=== PATIENT | male | born 1960 | race Caucasian/White ===

== ENCOUNTER → 2022-09-17 | Outpatient (CLI) | payer OTHER, SELFPAY ==
--- NOTE | 2022-09-17 09:16 | NM_ITS ---
CLINICAL: 62-year-old male with history of rectal carcinoma. WHOLE BODY 99m Tc MDP RADIONUCLIDE BONE SCINTIGRAPHY COMPARISON: None available FINDINGS: Following the intravenous administration of 26.1 mCi of 99m Tc MDP, whole body bone images reveal: 1. Increased radiopharmaceutical concentration is defined in the sternoclavicular, acromioclavicular and glenohumeral compartments of both shoulders, the left posterior sacrum, the bilateral wrists and hands, the patellofemoral compartments of both knees, medial tibial compartment of the right knee, the dorsal medial compartment of the right ankle, the left elbow, upper cervical spine posteriorly on the left, 10th thoracic vertebra posteriorly on the right. 2. Enhanced uptake is noted in the left posterior second rib which may be attributed to shine through from the left anterior first rib. 3. The remaining skeletal structures are scintigraphically unremarkable with normal-appearing renal images and urinary bladder activity identified. NM/Bone Scan Whole Body IMPRESSION: 1. The increase in tracer uptake defined in the bilateral shoulders, sacrum, cervical and thoracic spine, the right and left wrists and hands, both knee articulations, the right ankle and left elbow is commensurate with degenerative arthrosis. Plain film radiography correlation may be of benefit in the region of the glenohumeral compartment of the right shoulder. 2. Facilitated uptake noted in the region of the left upper posterior chest wall likely represents trauma-fracture. Plain film radiography correlation may also be of benefit in this location if clinically indicated. 3. There is no definitive scintigraphic evidence of diffuse axial skeletal metastatic disease on the current examination. Electronically Signed: Allan Moreno, at 9:15 EDT ,
== END | disposition home or self-care (01) ==
LOC: NM 09:15
PROVIDERS: PCP Student in an Organized Health Care Education/Training Program; Referring Provider Internal Medicine Hematology & Oncology; Visit Provider Internal Medicine Hematology & Oncology
DX: C20 Malignant neoplasm of rectum (principal); C77.9 Secondary and unspecified malignant neoplasm of lymph node, unspecified
CPT/HCPCS: 78306; A9503

== ENCOUNTER 2022-09-18 07:26 | Day surgery (SDC) | payer OTHER, SELFPAY ==
[2022-09-18] VITALS (12 sets, daily range): BP systolic 122–143; BP diastolic 76–94; PULSE 49–76; RESP 12–18; TEMP 36.1–36.5; O2SAT 94–100; BMI 32.5
[2022-09-18] MEDS: Lactated Ringers 1,000 ML 15 ML IV (07:45)
--- NOTE | 2022-09-18 08:59 | HP.PCM_ITS ---
History and Physical Date of Admission: 09/18/22 Date of Service: 09/13/22 MR#: [id number] Acct: [id number] Name: DEBBIE TOLLIVER Rep #: [id number] : 1960 Provider: Dr. Jonas Gonzales MD Age/Sex: 62/M Location: [facility] Status: Signed Intake Vital Signs 09/05/2314:46 09/10/2309:07 09/14/2307:52 Height 5 ft 7 in 5 ft 7 in 5 ft 7 in Weight: 209 lb 1 oz 209 lb BMI 32.7 32.7 BP 153/97 H 122/78 H Blood Pressure Location Rt brachial Lt brachial Position Sitting Sitting Respiration 16 17 Pulse 82 78 Pulse Source Monitor Monitor Temp 97.4 F L Pulse Oximetry (%) 95 96 Oxygen Delivery Method room air room air Intake Visit Reasons: PORT PLACEMENT Chief Complaint: port placement Is patient in pain?: No Allergies No Known Allergies Allergy (Verified 09/13/22 08:53) Medications amlodipine 5 mg tablet 5 mg PO DAILY 11/11/20 [History Confirmed 09/13/22] dulaglutide 1.5 mg/0.5 mL subcutaneous pen injector (Trulicity) 1.5 mg subcut QWEEK 11/11/20 [History Confirmed 09/13/22] losartan 100 mg tablet 100 mg PO DAILY 11/11/20 [History Confirmed 09/13/22] sildenafil 50 mg tablet (Viagra) 50 mg PO DAILY PRN 11/11/20 [History Confirmed 09/13/22] insulin glargine 100 unit/mL (3 mL) subcutaneous pen (Lantus Solostar U-100 Insulin) 23 unit subcut QAM 09/05/22 [History Confirmed 09/13/22] omeprazole 20 mg capsule,delayed release 40 mg PO DAILY PRN 09/05/22 [History Confirmed 09/13/22] rosuvastatin 20 mg tablet 20 mg PO DAILY 09/05/22 [History Confirmed 09/13/22] FOR[facility] Medical History Abnormal electrocardiogram COVID-19 DDD (degenerative disc disease) Encounter for education Erectile dysfunction Essential hypertension Hyperlipidemia Hypertension Opioid dependence Rectal cancer Regional lymph node metastasis present Right bundle branch block (RBBB) Sleep apnea TIA (transient ischemic attack) Type 2 diabetes mellitus Surgical History History of bilateral inguinal hernia repair History of colonoscopy History of nasal septoplasty History of surgery on arm History of vasectomy History of wisdom tooth extraction Family History Mother DiabetesAunt Breast cancer maternalAunt Breast cancer paternalGrandfather Lung cancer maternal Social History household members: family current occupational status: employed 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 Patient was diagnosed with rectal cancer on 07/24/2022 after complaints of bleeding and pain. They have met with oncology and plans are to begin chemotherapy as soon as possible and they have considered starting be a simple peripheral IV if no port is in place by the time they are prepared to initiate treatment. Mr. Tolliver reports a history of a colonoscopy 2 years ago with removal of a large rectal polyp, but states that he was told this was noncancerous. Following his scope in July he has continued with altered bowel habits and goes between periods of constipation and diarrhea. He is yet to start a stool softener. Patient has no prior history of central line placement. Patient has no pacemaker or intracardiac defibrillator. Patient has no history of renal dysfunction. There is no history of cutaneous infections?or MRSA specifically. Mr. Tolliver is not currently prescribed blood thinners. ROS General General: Yes fatigue and colon cancer; No weight change, appetite, breast cancer or weakness HEENT HEENT: No difficulty swallowing, eye injury, eye surgery, swollen glands or hoarseness Endo Endocrine: Yes diabetes mellitus; No thyroid disease, thyroid cancer, Hair loss, heat intolerance or cold intolerance Skin Skin: No rash or changing moles Musc Musculoskeletal: Yes back problems and arthritis; No rheumatoid arthritis, gout or joint pain Cardio Cardiovascular: Yes high blood pressure; No murmur, pacemaker, heart disease, atrial fibrillation, heart attack, heart stent, palpitations, shortness of breat with exertion or chest pain Psych Psychiatric: No depression, anxiety or hearing voices Resp Respiratory: No shortness of breath, Yes sleep apnea, Yes cough, No COPD, No asthma, No emphysema and No wheezing Additional Details: c pap Gastro Gastrointestinal: No abdominal pain, Yes nausea or vomiting, Yes diarrhea, Yes constipation, Yes blood in stool, Yes acid reflux, No hemorrhoids, No ulcers, No gallbladder problem and No black,tarry stools Cooper Hematologic: No blood thinners, No blood disorders, Yes bleeding, No anemia and No blood clots Neuro Neurologic: No system reviewed and no additional complaints, except as documented, No as per HPI, No abnormal gait, No abnormal hearing, No abnormal movements, No abnormal speech, No behavioral changes, No burning sensations, No confusion, No convulsions, No disequilibrium, No dizziness, No localized weakness, No frequent falls, No headache(s), No lack of coordination, No loss of vision, No memory loss, Yes numbness, No other visual disturbances, No radicular pain, No restless legs, No sensory deficit, No syncope, Yes tingling, No tremor(s), No weakness and No other Exam Const General: cooperative, comfortable, no acute distress and anxious Orientation: alert, awake and oriented x3 Neck Other: No scars Chest Other: No scars, rashes, or eruptions Resp Effort & Inspection: normal respiratory effort Assessment and Plan Assessment and Plan (1) Rectal cancer: Status: Acute Comment: This is a 62-year-old male with recently diagnosed rectal adenocarcinoma and probable regional lymph node metastasis who presents for consideration of port placement given plans by oncology and radiation oncology to begin neoadjuvant therapy. By history he has no prior placement of central venous catheters and no renal dysfunction. Additionally, he has no history of blood thinning agents. Therefore, I find no contraindication to port placement and have counseled him extensively on the need to avoid any risk for infection with this access. He and his spouse expressed understanding of the information provided and wish to be underway with port placement as soon as possible given that he is finding IV placement for his treatments and lab draws to date very uncomfortable. Lastly, patient does note that he is active with some shooting sports so this might be considered at the time of his port placement. Plan: ? Plan for right versus left port placement via ultrasound guidance under MAC sedation at first mutually available date (2) Regional lymph node metastasis present: Status: Acute I have examined the patient and the H&P has been reviewed. There are no clinical changes since date of exam. Patient reports plans by oncology to begin chemotherapy on 09/25/2022. He denies any questions related procedure. Therefore we will proceed to the operating room for right versus left ultrasound-guided port placement.
[2022-09-18] MEDS: Cefazolin 2 GM in 0.9% Normal Saline 100 ML IV (09:07)
[2022-09-18 09:25] LABS: Bedside Glucose 219 mg/dL (74-106)
[2022-09-18] MEDS: Bupivacaine Mpf 0.5% 30 ML VIAL (10:10)
--- NOTE | 2022-09-18 10:12 | OP.PCM_ITS ---
Report of Operation Date of Procedure: 09/18/22 Pre-Operative Diagnosis: Rectal cancer with probable regional lymph node metast asis requiring durable venous access for neoadjuvant chemotherapy Post-Operative Diagnosis: Same Surgery/Procedure Performed:: Ultrasound-guided right internal jugular Port-A-Cath placement Description of Surgical Findings:: ? Port-A-Cath tip terminating below the right mainstem bronchus in the vicinity of the SVC?right atrium junction Surgeon: Jonas Gonzales Type of Anesthesia: MAC/Supplemental/Local Anesthesiologist: Amrit Badillo Estimated Blood Loss (mL): 10 Description of Procedure: After appropriate identification in the preoperative holding area the patient was brought to the operating room. There he was administered preoperative antibiotics and positioned supine on the operating room table. Once sedation was begun, the upper chest and lower cervical region were prepped and draped in usual sterile fashion. A formal timeout was then conducted to confirm both the patient and procedure. Ultrasound was used to localize the right internal jugular vein. Then a wheal of 0.5% bupivacaine was raised superficially in this location and the vein was accessed under direct ultrasound guidance using a Seldinger technique and micro access kit to place a guidewire. The position of the guidewire was confirmed with fluoroscopy. The micro access guidewire was exchanged for standard 035 guidewire using provided sheath. Next the position of the port pocket was determined and again local anesthetic was used to anesthetize the area of both the pocket and the tunneling cephalad. A transverse incision 3 cm in width was made down through the subcutaneous tissue. Selective electrocautery was used to obtain hemostasis. Then with blunt dissection the port pocket was developed. The catheter was connected to the tunneler and was tunneled up to the position of the guidewire. Here the dilator and peel-away sheath were placed over the guidewire and the guidewire was removed. Position was again confirmed with fluoroscopy. The catheter was then fed into the sheath and slowly the sheath was peeled away as the catheter was inserted fully into the neck. The catheter length was determined by its relationship to the mukul and approximation of the cavoatrial junction. Back in the chest the excess catheter was trimmed and the port was connected to the catheter. The port was tied into the pocket using 2-0 Prolene. Function was then tested using sterile saline on a Wills needle. It was locked with 3 mL of heparinized saline (concentration 50U/5mL). The port pocket was closed with a deep dermal stitch using a running 3-0 Vicryl followed by 4-0 Monocryl subcuticular stitch. The 1 cm incision in the neck was closed with a single interrupted subcuticular stitch using 4-0 Monocryl. Dermabond was applied as a dressing. Patient was then aroused from the sedation and taken to PACU for ongoing recovery were a portable chest x-ray was obtained to confirm port positioning and exclude any pneumothorax. Grafts/Implants Used: PowerPort ISP MRI implantable port (8 Fr) reference [id number], lot [id number] Complications None Admit VTE Documentation VTE Mechan Device Prophylaxis: SCD's Procedures Cardiovascular CF Procedures [id number]: [id number] Insert tunneled cv cath
--- NOTE | 2022-09-18 10:15 | RAD_ITS ---
STUDY: X-RAY CHEST REASON FOR EXAM: Male, 62 years old. Status post line placement TECHNIQUE: Single AP portable view of the chest. COMPARISON: Comparison is made with prior study May 23, 2015. FINDINGS: A right-sided Port-A-Cath is seen with the tip in the midportion of the superior vena cava. EKG electrodes are seen. Increased markings are seen in the left mid lung as well as left lung base with blunting of the left costophrenic angle. Mild increased markings also seen in the right infrahilar region. This may represent either early infiltrate and/or atelectatic changes. Normal size heart. Normal mediastinum and shayy. Normal visualized pulmonary arteries. There is atherosclerotic tortuosity of the aortic arch and descending thoracic aorta. Normal visualized thoracic spine. Normal visualized ribs, clavicles, and shoulders. There is no demonstrated abnormality of the visualized soft tissue structures of the upper abdomen. RAD/CXR for Line Placement IMPRESSION: Increased markings in the left mid lung as well as left lower lobe and right lower lobe. This may represent either linear atelectasis and/or early infiltrate. Follow-up recommended. Electronically Signed: Willis Jacome MD at 10:59 EDT ,
--- NOTE | 2022-09-18 10:15 | DCINST_ITS ---
Discharge Instructions Diet Discharge Diet: No restrictions Activity Discharge Activity: May Shower May shower in (days): 1 Ice area for (Minutes): 20 Additional Activity Instructions:: Limit the activity by the nearest upper extremity for 48 hours postop Dressing / Incision Call your doctor if your incision/area has: Increased Pain/ Swelling, Increased Redness, Foul Smelling Discharge and Swelling at the incision site Call your doctor if you observe: Fever of 101 or Higher Remove Dressing in: do not remove dressing (Dermabond (surgical glue) expected to dissolve spontaneously within 7 to 10 days postop using regular showering) Cleanse incision/area with: Soap & Water Follow Up Care Test Results: Test results from this visit will be discussed in further detail at your follow- up appointment, if applicable. Discharge Plan Admission Primary Reason for Your Visit: Port placement Attending Provider: Jonas Gonzales Primary Care Provider: Keturah Keller Discharge Orders/Prescriptions Prescriptions: No Action rosuvastatin 20 mg tablet 20 mg PO DAILY insulin glargine [Lantus Solostar U-100 Insulin] 100 unit/mL (3 mL) insulin pen 23 unit subcut QAM multivitamin [Daily Multi-Vitamin] Tablet 1 tab PO DAILY losartan 100 mg tablet 100 mg PO DAILY amlodipine 5 mg tablet 5 mg PO DAILY Trulicity 1.5 mg/0.5 mL pen injector 1.5 mg subcut QWEEK sildenafil [Viagra] 50 mg tablet 50 mg PO DAILY PRN (Reason: sexual activity) Rx Instructions: administer 30 minutes to 4 hours before activity omeprazole 20 mg capsule,delayed release(DR/EC) 40 mg PO DAILY PRN (Reason: GERD) Referrals / Follow Up: Keturah Keller MD [Primary Care Provider] - Disposition Disposition (needs filled in before D/C Order can be placed): Home, Self Care
--- NOTE | 2022-09-18 11:30 | SUR.PHASEI ---
Teri FRANKEL NOTIFIED OF EKG CHANGES, EGD ORDERED. ALSO NOTIFIED OF LOW SPO2 AND SOME CHEST XRAY CHANGES. I SPOKE TO DR. SERRANO AND HE IS AWARE OF CHEST XRAY CHANGES. HE TOLD ME TO GIVE THE PATIENT AND INCENTIVE SPIROMETER, ENCOURAGE TO GO TO PCP IF STARTS COUGHING OR SOB, AND CHECK SPO2 AT HOME. DR. FRANKEL SAID TO KEEP PATIENT FOR A WHILE LONGER.
--- NOTE | 2022-09-18 11:40 | EKG12_ITS ---
Test Reason : EKG CHANGES Blood Pressure : / mmHG Vent. Rate : 050 BPM Atrial Rate : 050 BPM P-R Int : 164 ms QRS Dur : 122 ms QT Int : 454 ms P-R-T Axes : 022 -21 008 degrees QTc Int : 413 ms Sinus bradycardia Right bundle branch block Abnormal ECG When compared with ECG of 07-APR-2013 16:50, Vent. rate has decreased BY 27 BPM Right bundle branch block is now Present Confirmed by CHRISTOPHER MONTESINOS, TAMI ([id number]), editorial manager BRANDT PRADO ([id number]) on 09/24/2022 11:16:17 AM Referred By: Jonas Gonzales Confirmed By:TAMI WHITE MD
--- NOTE | 2022-09-18 13:08 | SUR.PHASEI ---
DR. FRANKEL VIEWED EKG AND SAID NO CHANGES. I TOLD HIM ABOUT HIS SPO2 STILL DROPPING AT TIMES, BUT BOUNCES RIGHT UP AFTER TELLING HIM TO TAKE DEEP BREATHS. HE ORDERED A WALK WITH SPO2 IN PHASE 2.
--- NOTE | 2022-09-18 13:12 | SUR.PHASEI ---
PATIENT'S NOTIFIED OF WATCHING PATIENT FOR LOW SP02. TOLD HER WE WILL NOTIFY HER WHEN READY TO LEAVE.
[2022-09-18] MEDS: Acetaminophen 500 MG Tablet PO (13:43)
[2022-09-18] MEDS: Ibuprofen 400 MG Tablet PO (13:44)
== END 2022-09-18 14:23 | disposition home or self-care (01) ==
LOC: SDC 07:27 → AC 07:28
PROVIDERS: PCP Student in an Organized Health Care Education/Training Program; Referring Provider Surgery; Visit Provider Surgery
PROC: (CPT 36561; principal; 2022-09-18 09:05)
DX: C20 Malignant neoplasm of rectum (principal); C77.9 Secondary and unspecified malignant neoplasm of lymph node, unspecified; E11.9 Type 2 diabetes mellitus without complications; E78.5 Hyperlipidemia, unspecified; Z86.16 Personal history of COVID-19; I10 Essential (primary) hypertension; Z80.1 Family history of malignant neoplasm of trachea, bronchus and lung; F12.90 Cannabis use, unspecified, uncomplicated; Z80.3 Family history of malignant neoplasm of breast; Z86.73 Personal history of transient ischemic attack (TIA), and cerebral infarction without residual deficits; I45.10 Unspecified right bundle-branch block
CPT/HCPCS: 36561; 00532; 71045; 77001; 82962; 93005; J7120; C1788; J2405

== ENCOUNTER 2023-04-28 20:47 | Emergency (ER) | payer OTHER, SELFPAY ==
[2023-04-28 20:48] VITALS: BP 127/81; PULSE 88; RESP 16; TEMP 36.4; O2SAT 97; BMI 31.4
--- NOTE | 2023-04-28 21:15 | EDS_ITS ---
HPI <SEB Ackerman - Last Filed: 04/28/23 22:00> History of Present Illness Chief Complaint: Nausea/Vomiting/Diarrhea Narrative Narrative: 62-year-old male has past medical history of HTN, HLD, DM2, and rectal cancer and finished chemotherapy on March 17. Over the last week he has had significant burping, intermittent abdominal cramping and sharp pains, and diarrhea. He states he has 20+ episodes of loose watery diarrhea per day. Occasionally it has blood-tinged mucus. He states his rectal specialist told him it could be normal to have a small amount of blood in his stool from the tumor. He has had no clots or large bleeding. Today he started vomiting and cannot keep down fluids. After finishing chemotherapy his rectal tumor shrunk to the point he was told he does not need surgery. Surgical history includes bilateral inguinal hernia repair. He denies recent antibiotic use. No fever or chills. PFSH <SEB Ackerman - Last Filed: 04/28/23 22:00> [facility] Medical History Abnormal electrocardiogram Alcohol use Arthritis Back pain Cancer COVID-19 CPAP (continuous positive airway pressure) dependence DDD (degenerative disc disease) Dietary restriction Dysuria Encounter for chemotherapy management Encounter for education Erectile dysfunction Essential hypertension Gastric reflux High cholesterol History of echocardiogram Hyperlipidemia Hypertension Injury of head and neck Insulin dependent diabetes mellitus Loss of hearing Non-smoker Opioid dependence Oral candidiasis Prerenal azotemia Rectal cancer Regional lymph node metastasis present Restless legs Right bundle branch block (RBBB) TIA (transient ischemic attack) Type 2 diabetes mellitus Home Medications amlodipine 5 mg tablet 5 mg PO DAILY 11/11/20 [History Last Taken 09/18/22] dulaglutide 1.5 mg/0.5 mL subcutaneous pen injector (Trulicity) 1.5 mg subcut QWEEK 11/11/20 [History Last Taken Unknown] losartan 100 mg tablet 100 mg PO DAILY 11/11/20 [History Last Taken 09/18/22] sildenafil 50 mg tablet (Viagra) 50 mg PO DAILY PRN sexual activity 11/11/20 [History Last Taken Unknown] insulin glargine 100 unit/mL (3 mL) subcutaneous pen (Lantus Solostar U-100 Insulin) 23 unit subcut QAM 09/05/22 [History Last Taken Unknown] omeprazole 20 mg capsule,delayed release 40 mg PO DAILY PRN GERD 09/05/22 [History Last Taken 09/18/22] rosuvastatin 20 mg tablet 20 mg PO DAILY 09/05/22 [History Last Taken Unknown] multivitamin (Daily Multi-Vitamin tablet) 1 tab PO DAILY 09/14/22 [History Last Taken Unknown] ondansetron 8 mg disintegrating tablet 8 mg PO Q8H PRN nausea and vomiting #30 tabs 09/20/22 [Rx Last Taken Unknown] prochlorperazine maleate 10 mg tablet 10 mg PO Q6H PRN nausea and vomiting #30 tabs 10/19/22 [Rx Last Taken Unknown] lidocaine-prilocaine 2.5 %-2.5 % topical cream 1 applic topical ONCE PRN port access 30 days #30 grams 01/14/23 [Rx Last Taken Unknown] nystatin 100,000 unit/mL oral suspension 5 ml PO Q6H #473 mL 04/08/23 [Rx Last Taken Unknown] Allergy/AdvReac Type Severity Reaction Status Date / Time No Known Allergies Allergy Verified 04/28/23 20:48 Family History Mother Diabetes Aunt Breast cancer maternal Aunt Breast cancer paternal Grandfather Lung cancer maternal Surgical History History of bilateral inguinal hernia repair History of colonoscopy History of nasal septoplasty History of surgery on arm History of vasectomy History of wisdom tooth extraction Social History household members: family current occupational status: employed 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 CVS: Negative for chest pain. Respiratory: Negative for shortness of breath, cough. GI: Positive for abdominal pain, nausea, vomiting, diarrhea. : Negative for dysuria. EXAM <SEB Ackerman - Last Filed: 04/28/23 22:00> Physical Exam Narrative Exam Narrative: CONST: Patient sitting in no acute distress. EYES: Normal inspection. NECK: Normal inspection. RESP: No respiratory distress, CTAB. CVS: Regular rate and rhythm, no murmur, no gallop. ABD: Soft and nontender, no guarding or rebound, nondistended. Normal bowel sounds x 4. SKIN: Color normal, no rash, warm, dry, intact. EXTREMITIES: Normal appearance, no pedal edema. NEURO: Oriented x4. PSYCH: Normal affect. Const Vital Signs: 04/28/23 20:48 04/28/23 22:00 04/28/23 23:00 Temperature 97.5 F L Temperature Source Temporal Pulse Rate 88 Respiratory Rate 16 Blood Pressure 127/81 H 134/88 H 132/79 H Blood Pressure Mean 96 102 96 Pulse Ox 97 96 95 Oxygen Delivery Method Room Air <Dr. Priya Espinoza MD - Last Filed: 04/29/23 00:31> Physical Exam Const Vital Signs: 04/28/23 20:48 04/28/23 22:00 04/28/23 23:00 Temperature 97.5 F L Temperature Source Temporal Pulse Rate 88 Respiratory Rate 16 Blood Pressure 127/81 H 134/88 H 132/79 H Blood Pressure Mean 96 102 96 Pulse Ox 97 96 95 Oxygen Delivery Method Room Air MDM <SEB Ackerman - Last Filed: 04/28/23 22:00> [facility] Narrative Medical decision making narrative: Patient reports a week of intermittent abdominal cramping, burping, and diarrhea. Today started vomiting. He appears well and nontoxic and is afebrile with normal vital signs. He has a normal cardiopulmonary exam. Abdomen is soft, nontender, nondistended with normal bowel sounds. CBC and BMP are overall unremarkable. Glucose at 211 is consistent with his diabetes with normal CO2 and anion gap. Diarrhea was sent for stool panel testing. CT scan is pending. Lab Data Attestation: I reviewed the patient's lab results. Labs: Laboratory Results - last 24 hr 04/28/23 04/28/23 21:15 23:50 WBC 6.8 RBC 4.71 Hgb 15.2 Hct 45.0 MCV 95.5 H MCH 32.3 H MCHC 33.8 RDW Std Deviation 41.8 RDW Coeff of Danie 11.9 Plt Count 166 MPV 10.5 Immature Gran % (Auto) 0.100 Neut % (Auto) 75.5 H Lymph % (Auto) 7.[address] [place] % (Auto) 11.7 H Eos % (Auto) 4.8 Baso % (Auto) 0.3 Absolute Neuts (auto) 5.2 Absolute Lymphs (auto) 0.52 L Nucleated RBC % 0 Sodium 137 Potassium 4.0 Chloride 108 H Carbon Dioxide 25.0 Anion Gap 4 L BUN 16 Creatinine 0.87 Estim Creat Clear Calc 96.01 Est GFR (MDRD) Af Amer 115 Est GFR (MDRD) Non-Af 95 BUN/Creatinine Ratio 18.5 Glucose 211 H Calcium 9.1 Total Bilirubin 1.20 H AST 29 ALT 28 Alkaline Phosphatase 107 Total Protein 6.9 Albumin 3.3 Globulin 3.6 Albumin/Globulin Ratio 0.9 Urine Color Yellow Urine Clarity Clear Urine pH 6.5 Ur Specific [place] 1.015 Urine Protein Negative Urine Glucose (UA) 50 H Urine Ketones Negative Urine Occult Blood Negative Urine Nitrite Negative Urine Bilirubin Negative Urine Urobilinogen Normal Ur Leukocyte Esterase Negative Urine RBC 0 SEEN Urine WBC 0 SEEN Ur Squamous Epith Cells 0 SEEN Urine Bacteria 0 SEEN Urine Mucus 0 SEEN Radiography Diagnostic Testing: Clinical Impression(s) from Imaging Studies Abdomen/Pelvis CT 04/28/23 21:58 IMPRESSION: Circumferential bladder wall inflammation concerning for cystitis. Mild hepatic steatosis. Electronically Signed: Pratki Gregory MD at 22:54 EST Reading Location ID and State: [facility] / [place] Tel , Service support , <Dr. Priya Espinoza MD - Last Filed: 04/29/23 00:31> [facility] Lab Data Labs: Laboratory Results - last 24 hr 04/28/23 04/28/23 21:15 23:50 WBC 6.8 RBC 4.71 Hgb 15.2 Hct 45.0 MCV 95.5 H MCH 32.3 H MCHC 33.8 RDW Std Deviation 41.8 RDW Coeff of Danie 11.9 Plt Count 166 MPV 10.5 Immature Gran % (Auto) 0.100 Neut % (Auto) 75.5 H Lymph % (Auto) 7.[address] [place] % (Auto) 11.7 H Eos % (Auto) 4.8 Baso % (Auto) 0.3 Absolute Neuts (auto) 5.2 Absolute Lymphs (auto) 0.52 L Nucleated RBC % 0 Sodium 137 Potassium 4.0 Chloride 108 H Carbon Dioxide 25.0 Anion Gap 4 L BUN 16 Creatinine 0.87 Estim Creat Clear Calc 96.01 Est GFR (MDRD) Af Amer 115 Est GFR (MDRD) Non-Af 95 BUN/Creatinine Ratio 18.5 Glucose 211 H Calcium 9.1 Total Bilirubin 1.20 H AST 29 ALT 28 Alkaline Phosphatase 107 Total Protein 6.9 Albumin 3.3 Globulin 3.6 Albumin/Globulin Ratio 0.9 Urine Color Yellow Urine Clarity Clear Urine pH 6.5 Ur Specific [place] 1.015 Urine Protein Negative Urine Glucose (UA) 50 H Urine Ketones Negative Urine Occult Blood Negative Urine Nitrite Negative Urine Bilirubin Negative Urine Urobilinogen Normal Ur Leukocyte Esterase Negative Urine RBC 0 SEEN Urine WBC 0 SEEN Ur Squamous Epith Cells 0 SEEN Urine Bacteria 0 SEEN Urine Mucus 0 SEEN Radiography Diagnostic Testing: Clinical Impression(s) from Imaging Studies Abdomen/Pelvis CT 04/28/23 21:58 IMPRESSION: Circumferential bladder wall inflammation concerning for cystitis. Mild hepatic steatosis. Electronically Signed: Pratik Gregory MD at 22:54 EST Reading Location ID and State: [address] [place] [address] Tel , Service support , Treatment and Re-Evaluation :: Patient seen and evaluated with ISAEL. I personally interviewed and examined the patient. I was involved in all aspects of patient's orders, interpretation of results, and treatment. Patient presents with 1 week history of diarrhea and frequent burping. Today he had 3 episodes of vomiting with at least 20 episodes of diarrhea. He was recently treated for rectal cancer and did have chemotherapy and radiation, both of which have been completed. He denies any recent antibiotic use. Patient sitting upright in bed no acute distress. Nontoxic-appearing. Head and neck examination unremarkable. Heart is regular rate and rhythm. Lung sounds are clear. Abdomen is soft with no focal tenderness. Abdomen is slightly distended with hyperactive bowel sounds. CBC was normal white count at 6.8 with a hemoglobin of 15.2. Differential does reveal 75% neutrophils. Chemistry studies unremarkable with normal renal function. Potassium is normal at 4.0. Glucose is 211. LFTs significant only for a total bili of 1.20. CT scan of the abdomen and pelvis reveals thickened bladder wall concerning for cystitis. Urinalysis was then obtained and is unremarkable. I believe he likely has chronic wall thickening from his radiation. Stool studies have been sent and are still pending at this time. Patient was advised that these test usually takes several hours. He will be called if these tests are positive. He also can log onto the portal and review his lab results himself. He was advised that once he knows the stool studies are negative he can take Imodium to help control his diarrhea. He was given a liter of IV fluids here to help with hydration. Patient is comfortable with the plan and return instructions have been provided. Discharge Plan Triage Chief Complaint: Nausea/Vomiting/Diarrhea ED Midlevel Provider: Selma Dent ED Provider: Priya Espinoza Dx/Rx/DC Orders Clinical Impression: Diarrhea Instructions: ED Gastroenteritis, Viral (Adult) Prescriptions: No Action rosuvastatin 20 mg tablet 20 mg PO DAILY insulin glargine [Lantus Solostar U-100 Insulin] 100 unit/mL (3 mL) insulin pen 23 unit subcut QAM lidocaine-prilocaine 2.5-2.5 % cream 1 applic topical ONCE PRN (Reason: port access) 30 Days Qty: 30 2RF multivitamin [Daily Multi-Vitamin] Tablet 1 tab PO DAILY losartan 100 mg tablet 100 mg PO DAILY amlodipine 5 mg tablet 5 mg PO DAILY Trulicity 1.5 mg/0.5 mL pen injector 1.5 mg subcut QWEEK sildenafil [Viagra] 50 mg tablet 50 mg PO DAILY PRN (Reason: sexual activity) Rx Instructions: administer 30 minutes to 4 hours before activity omeprazole 20 mg capsule,delayed release(DR/EC) 40 mg PO DAILY PRN (Reason: GERD) ondansetron 8 mg tablet,disintegrating 8 mg PO Q8H PRN (Reason: nausea and vomiting) Qty: 30 2RF prochlorperazine maleate 10 mg tablet 10 mg PO Q6H PRN (Reason: nausea and vomiting) Qty: 30 2RF nystatin 100,000 unit/mL suspension 5 ml PO Q6H Qty: 473 1RF Rx Instructions: swish and swallow Primary Care Provider: Keturah Keller Referrals: Keturah Keller MD [Primary Care Provider] - 3-5 Days if not improving Disposition Disposition: Home, Self Care
[2023-04-28] MEDS: Ondansetron 4 MG/2 ML Vial IV (21:25)
[2023-04-28] MEDS: 0.9% Normal Saline (1000mL) 1,000 ML 1000 ML IV (21:26)
[2023-04-28 21:34] LABS: Absolute Lymphocyte Count 0.52 X10^3/uL (0.83-4.51); Absolute Neutrophil Count 5.2 X10^3/uL (2.0-7.7); Basophil# 0.02 X10^3/uL; Basophil% 0.3 % (0-1); Eosinophil# 0.33 X10^3/uL; Eosinophils% 4.8 % (0-5); Hemoglobin 15.2 g/dL (13.0-16.5); Lymphocyte # 0.52 X10^3/ul (0.83-4.51); Lymphocyte % 7.6 % (19-41); Mean Corp Hgb Conc 33.8 g/dL (32-36); Mean Corpuscular Hgb 32.3 pg (27.0-32.0); Mean Corpuscular Volume 95.5 fL (80-94); Mean Platelet Vol. 10.5 fl (6.2-12.0); Monocyte% 11.7 % (0-10); NRBC Flagged by Analyzer 0 % (0-5); Neutrophil # 5.16 X10^3/uL (2.7-7.7); Neutrophil % 75.5 % (47-70); POSITIVE DIFFERENTIAL YES; Platelet Count 166 K/mm3 (150-450); RBC Distribution Width CV 11.9 % (11.6-14.6); RBC Distribution Width SD 41.8 fl (35.1-43.9); Red Blood Count 4.71 M/mm3 (4.6-6.2); White Blood Count 6.8 K/mm3 (4.4-11.0)
[2023-04-28 21:42] LABS: ALB/GLOB Ratio 0.9 RATIO (0.9-2.4); AST(SGOT) 29 U/L (15-37); Alanine Aminotransfer ALT/SGPT 28 U/L (16-61); Albumin, Serum 3.3 g/dL (3.2-5.0); Alkaline Phosphatase 107 U/L (45-117); Anion Gap 4 (5-15); BUN 16 mg/dL (7-18); BUN/Creat Ratio 18.5 RATIO (10-20); Calcium,Total 9.1 mg/dL (8.5-10.1); Chloride 108 mmol/L (98-107); Creatinine, Serum 0.87 mg/dL (0.70-1.30); EST Glomerular Filtration Rate 95 mL/min (>60); Est Glom Filt Rate - Afr Amer 115 mL/min (>60); Estimated Creatinine Clearance 96.01 ml/min; Globulin 3.6 g/dL (2.2-4.2); Glucose 211 mg/dL (74-106); Protein, Total 6.9 g/dL (6.4-8.2); Sodium Level 137 mmol/L (136-145)
--- OUTSIDE RECORDS SUMMARY | 2023-04-28 21:42 | XMS RPT_ITS | CCD ---
Author Name Unknown Address [address] [place] [address] Organization [facility] Care Team Providers Care Telephone Order Clerk Room Service Name Role Phone SHANNON KELLER MD Attending Unavailable SHANNON KELLER MD Primary Care Unavailable SHANNON KELLER MD Admitting Unavailable Spike Reece MD Primary Care Provider Shannon Keller MD Primary Care Provider None, No PCP Unavailable Unavailable Unavailable Unavailable Shannon Keller MD Primary Care Provider [phone] Shannon Keller Referring Unavailable BELLO, DO BARRETT Palmer Attending Unavailable Clarisa Boo Attending Unavailable Emmanuel, Dr. Debbie Ayoub Attending Unavaila Clarisa Bartlett Referring Unavailable Emmanuel, Dr. Debbie Ayoub Attending Unavaila Clarisa Bartlett Referring Unavailable Emmanuel, Dr. Debbie Ayoub Attending Unavaila Clarisa Bartlett Referring Unavailable MD JAYLON GERARD Attending Unavail able DO BARRETT MONSALVE Referring Unavailable Bello, Dr. Barrett Palmer Attending Unavailable Rajeev, Ms. Clarisa Cosby Attending Unavailab marin Boo, Ms. Clarisa Cosby Referring Unavailab marin Gerard, Dr. Jaylon Sierra Attending Ryan Gerard, Dr. Jaylon Sierra Referring Ryan Monsalve, Dr. Barrett Palmer Admitting Unavailable Bello, Dr. Barrett Palmer Attending Unavailable Shannon Keller Referring Unavailable SHANNON KELLER MD Consulting Unavailable BARRETT MONSALVE Primary Care Unavailable BARRETT MONSALVE Attending Unavailable BARRETT MONSALVE Admitting Unavailable PROVIDER, UNKNOWN Consulting Unavailable PROVIDER, UNKNOWN Consulting Unavailable SHANNON KELLER MD Primary Care Unavailable SHANNON KELLER MD Consulting Unavailable SHANNON KELLER MD Attending Unavailable SHANNON KELLER MD Admitting Unavailable PROVIDER, UNKNOWN Consulting Unavailable PROVIDER, UNKNOWN Consulting Unavailable SHANNON KELLER MD Primary Care Unavailable SHANNON KELLER MD Consulting Unavailable SHANNON KELLER MD Attending Unavailable SHANNON KELLER MD Admitting Unavailable PROVIDER, UNKNOWN Consulting Unavailable PROVIDER, UNKNOWN Consulting Unavailable SHANNON KELLER MD Primary Care Unavailable SHANNON KELLER MD Attending Unavailable SHANNON KELLER MD Admitting Unavailable SHANNON KELLER MD Consulting Unavailable PROVIDER, UNKNOWN Consulting Unavailable PROVIDER, UNKNOWN Consulting Unavailable SHANNON KELLER MD Consulting Unavailable SHANNON KELLER MD Attending Unavailable SHANNON KELLER MD Admitting Unavailable SHANNON KELLER MD Primary Care Unavailable PROVIDER, UNKNOWN Consulting Unavailable PROVIDER, UNKNOWN Consulting Unavailable SHANNON KELLER MD Primary Care Unavailable SHANNON KELLER MD Consulting Unavailable SHANNON KELLER MD Attending Unavailable SHANNON KELLER MD Admitting Unavailable PROVIDER, UNKNOWN Consulting Unavailable PROVIDER, UNKNOWN Consulting Unavailable SHANNON KELLER MD Primary Care Unavailable SHANNON KELLER MD Attending Unavailable SHANNON KELLER MD Admitting Unavailable SHANNON KELLER MD Consulting Unavailable PROVIDER, UNKNOWN Consulting Unavailable PROVIDER, UNKNOWN Consulting Unavailable Unavailable Primary Care Provider Unavailabl e ANALI STEIN F Attending Unavailable ANALI STEIN F Admitting Unavailable SELF, SELF Referring Unavailable SHANNON KELLER Primary Care Unavailable SHANNON KELLER Primary Care Unavailable ANALI STEIN F Attending Unavailable SELF, SELF Referring Unavailable SHANNON KELLER Primary Care Unavailable KALADY, ANALI F Attending Unavailable SELF, SELF Referring Unavailable KALADY, ANALI F Attending Unavailable SHANNON KELLER Primary Care Unavailable ROSALINE, PATRICIA A Referring Unavailable SHANNON KELLER Primary Care Unavailable KALADY, ANALI F Referring Unavailable SHANNON KELLER Primary Care Unavailable KALJANET, ANALI F Attending Unavailable SHANNON KELLER Primary Care Unavailable ROSALINE, PATRICIA A Referring Unavailable SHANNON KELLER Primary Care Unavailable ROSALINE, PATRICIA A Referring Unavailable KALJANET, ANALI F Attending Unavailable SHANNON KELLER Primary Care Unavailable SELF, SELF Referring Unavailable KALJANET, ANALI F Attending Unavailable Medications Current Medications Medication Drug Class(es) Dates Sig (Normalized) Sig (Original) AMLODIPINE BENZOATE PO (6 sources) take 5 mg by mouth o nce daily AMLODIPINE BENZOATE PO Take 5 mg by mouth daily. Active Completed/Discontinued Medications Medication Drug Class(es) Dates Sig (Normalized) Sig (Original) amLODIPine 5 mg oral tablet (10 sources) Dihydropyridine Calcium Channel Linda Start: 07-18-2021 amLODIPine Besylate 5 MG Oral Tablet Quantity: 90 Refills: 0 Ordered: 11-Apr-2022 DO Start : 18-Jul-2021 Active Problems Active Problems Problem Classification Problem Date Documented Da te Episodic/Chronic Biliary tract disease (1 source) Other specified diseases of biliary tract; Translations: [Other specified diseases of biliary tract] Onset: 3 Chronic Cancer of rectum and anus (20 sources) Primary malignant neoplasm of rectum; Translations: [Malignant neoplasm of rectum] Onset: 3 09-02-2022 Chronic Contraceptive and procreative management (1 source) Vasectomy status; Translations: [Vasectomy status] Onset: 3 Episodic Diabetes mellitus without complication (4 sources) Type 2 diabetes mellitus without complications; Translations: [Type 2 diabetes mellitus without complication] Onset: 1 08-01-2022 Chronic Disorders of lipid metabolism (2 sources) Pure hypercholesterolemia, unspecified; Translations: [Pure hypercholesterolemia] Onset: 3 08-01-2022 Chronic Esophageal disorders (1 source) Gastroesophageal reflux disease without esophagitis; Translations: [Gastro-esophageal reflux disease without esophagitis] Chronic Essential hypertension (2 sources) Essential (primary) hypertension; Translations: [Essential hypertension] Onset: 3 08-01-2022 Chronic Gastrointestinal hemorrhage (16 sources) Rectal hemorrhage; Translations: [Hemorrhage of rectum and anus] Onset: 3 Episodic Malignant neoplasm without specification of site (9 sources) Malignant adenomatous neoplasm; Translations: [Other malignant neoplasm without specification of site] Onset: 3 Chronic Other circulatory disease (8 sources) History of transient ischemic attack; Translations: [Personal history of transient ischemic attack (TIA), and cerebral infarction without residual deficits] Episodic Other circulatory disease (8 sources) H/O: hypertension; Translations: [Personal history of other diseases of circulatory system] Episodic Other circulatory disease (1 source) Personal history of transient ischemic attack (TIA), and cerebral infarction without residual deficits; Translations: [Prsnl hx of TIA (TIA), and cereb infrc w/o resid deficits] Onset: 3 Episodic Other circulatory disease (1 source) History of cerebrovascular disease; Translations: [Personal history of transient ischemic attack (TIA), and cerebral infarction without residual deficits] 08-01-2022 Episodic Other diseases of kidney and ureters (1 source) Cyst of kidney, acquired; Translations: [Cyst of kidney, acquired] Onset: 3 Episodic Other gastrointestinal disorders (8 sources) Diarrhea; Translations: [Diarrhea] Episodic Other liver diseases (1 source) Fatty (change of) liver, not elsewhere classified; Translations: [Fatty (change of) liver, not elsewhere classified] Onset: 3 Chronic Other lower respiratory disease (1 source) Other nonspecific abnormal finding of lung field; Translations: [Other nonspecific abnormal finding of lung field] Onset: 3 Episodic Other nervous system disorders (8 sources) Meralgia paresthetica; Translations: [Meralgia paresthetica] Chronic Other nutritional; endocrine; and metabolic disorders (8 sources) H/O: raised blood lipids; Translations: [Personal history of other endocrine, metabolic, and immunity disorders] Episodic Other nutritional; endocrine; and metabolic disorders (8 sources) History of diabetes mellitus type 2; Translations: [Personal history of other endocrine, metabolic, and immunity disorders] Episodic Pancreatic disorders (not diabetes) (1 source) Other specified diseases of pancreas; Translations: [Other specified diseases of pancreas] Onset: 3 Episodic Residual codes; unclassified (8 sources) Obstructive sleep apnea syndrome; Translations: [Obstructive sleep apnea (adult)(pediatric)] Chronic Residual codes; unclassified (1 source) Sleep apnea, unspecified; Translations: [Sleep apnea, unspecified] Onset: 3 Chronic Residual codes; unclassified (1 source) Sleep apnea; Translations: [Sleep apnea, unspecified] 08-01-2022 Chronic Respiratory failure; insufficiency; arrest (adult) (2 sources) Chronic hypoxemic respiratory failure; Translations: [Chronic respiratory failure with hypoxia] Onset: 0912-01-2020 Chronic Past or Other Problems Problem Classification Problem Date Documented Date Episodic/Chronic Mood disorders (2 sources) Mood disorders Onset: 04-22-2023 04-22-2023 Other screening for suspected conditions (not mental disorders or infectious disease) (3 sources) Computed tomography result abnormal; Translations: [Nonspecific (abnormal) findings on radiological and other examination of other intrathoracic organs] Onset: 03-30-2022 Episodic Viral infection (2 sources) COVID-19; Translations: [Pneumonia due to other virus not elsewhere classified] Onset: 12-01-2020 12-01-2020 Episodic Results Test Name Value Interpretation Reference Range Facil ity Vital Signs Date Time Vital Sign Value Performing Clinician Faci lity 04-22-2023 12:00-0500 Body height 170.2 cm Anali Stein MD Work Phone: [facility] 04-22-2023 12:00-0500 Body mass index (BMI) [Ratio] 31.53 kg/m2 Anali Stein MD Work Phone: [facility] 04-22-2023 12:00-0500 Body temperature 98.1 [degF] Anali Stein MD Work Phone: [facility] 04-22-2023 12:00-0500 Body weight 91.31 kg Anali Stein MD Work Phone: [facility] 04-22-2023 12:00-0500 Diastolic blood pressure 88 mm[Hg] Anali Stein MD Work Phone: [facility] 04-22-2023 12:00-0500 Heart rate 75 /min Anali Stein MD Work Phone: [facility] 04-22-2023 12:00-0500 Respiratory rate 16 /min Anali Stein MD Work Phone: [facility] 04-22-2023 12:00-0500 SaO2% (BldA) [Mass fraction] 96 % Anali Stein MD Work Phone: [facility] 04-22-2023 12:00-0500 Systolic blood pressure 142 mm[Hg] Anali Stein MD Work Phone: [facility] 09-03-2022 08:06-0400 Body height 171.4 cm Anali Stein MD Work Phone: [facility] Encounters Encounter Date Encounter Type Care Provider Facility Start: 04-30-2023 Evaluation and management of inpatient ANALI STEIN Facility:[facility] Start: 04-22-2023 ambulatory SHANNON KELLER Facilshailesh ty:[facility] Start: 04-22-2023 [facility] Start: 04-22-2023 End: 04-22-2023 Clinical Support Encounter Anali Stein MD Work Phone: [facility] Procedures Date Procedure Procedure Detail Performing Clinician Start: 04-22-2023 Carcinoembryonic antigen cea Patricia Martinez BURRING MACHINE OPERATOR-COSMETICS PRESSER Work Phone: Start: 04-22-2023 CA screen;flexi sigmoidscope Anali Stein MD Work Phone: Start: 04-20-2023 Creatinine blood Ingrid Stein MD Work Phone: Start: 09-03-2022 Carcinoembryonic antigen cea Anali Stein MD Work Phone: Start: 09-03-2022 CA screen;flexi sigmoidscope Anali Stein MD Work Phone: Start: 07-24-2022 SURGICAL PATHOLOGY RESULTS Barrett Monsalve DO Work Phone: Start: 07-24-2022 Colonoscopy stoma dx including collj spec spx Provation Conversion Start: 07-24-2022 End: 07-24-2022 Colonoscopy No PCP None Start: 03-30-2022 PSA screening SHANNON ABREU Plan of Treatment Date Care Activity Detail Author Start: 07-24-2032 Screening for malignant neoplasm of colon [facility] Start: 03-30-2025 DIABETES SCREEN DIABETES SCREEN [facility] Start: 09-25-2024 DIABETES SCREEN DIABETES SCREEN [facility] Start: 04-22-2024 Screening for malignant neoplasm of colon COLORECTAL CANCER SCREENING DISCUSSION [facility] Start: 04-10-2024 LIPID SCREEN LIPID SCREEN [facility] Start: 09-04-2023 Screening for malignant neoplasm of colon COLORECTAL CANCER SCREENING DISCUSSION [facility] Start: 08-07-2023 PROSTATE CANCER SCREENING DISCUSSION PROSTATE CANCER SCREENING DISCUSSION [facility] Start: 07-22-2023 End: 07-22-2023 Patient encounter procedure 07/22/2023 12:15 PM EDT Office Visit Division of Colon & Rectal Surgery [address] [phone] Anali Stein MD [address] [place] [address] Division of Colon & Rectal Surgery Start: 06-10-2023 End: 06-10-2023 Patient encounter procedure 06/10/2023 11:30 AM EDT Office Visit Division of Colon & Rectal Surgery [address] [phone] Patricia Carreon, BURRING MACHINE OPERATOR-COSMETICS PRESSER [address] [phone] Patricia Martinez BURRING MACHINE OPERATOR-COSMETICS PRESSER [address] [place] [address] Division of Colon & Rectal Surgery Start: 04-30-2023 End: 04-30-2023 Laps proctectomy abdominoperineal w/colostomy PROCTECTOMY COMPLETE ABDOMINOPERINEAL APPROACH ROBOTIC Malignant neoplasm of rectum 04/30/2023 7:00 AM EST [facility] Start: 04-30-2023 End: 04-30-2023 Evaluation and management of inpatient [facility] PERIOP Immunizations Immunization Date Immunization Notes Care Provider Fa ciliezequiel 07-31-2006 tetanus and diphther ia toxoids, adsorbed, preservative free, for adult use (2 Lf of tetanus toxoid and 2 Lf of diphtheria toxoid) Spike Reece MD Work Phone: [facility] Work Phone: Payers Date Payer Category Payer Unknown [id number] 2017 Unknown [id number] 1961 Unknown [id number] 2.16.84 0.1.192440.3.579.2.651 1961 Unknown [id number] 2.16. 840.1.229605.3.579.2.356 1961 Unknown [id number] 2.16. 840.1.540539.3.579.2.356 1961 Unknown [id number] 2.16. 840.1.410444.3.579.2.356 1961 Unknown [id number] 2.16. 840.1.899057.3.579.2.356 1961 Unknown [id number] 2.16. 840.1.672629.3.579.2.356 1961 Unknown [id number] 2.16. 840.1.787089.3.579.2.356 1961 Unknown [id number] 2.16.8 40.1.779249.3.579.2.1069 1961 Unknown [id number] 2.16.8 40.1.481104.3.579.2.1069 1961 Unknown [id number] 2.16.8 40.1.022637.3.579.2.1069 1961 Unknown [id number] 2.16.8 40.1.093917.3.579.2.1069 1961 Unknown [id number] 2.16.8 40.1.784849.3.579.2.651 1962 Unknown [id number] 2.16.8 40.1.717809.3.579.2.651 1961 Unknown [id number] 2.16.84 0.1.933192.3.579.2.651 1961 Unknown [id number] 2.16.84 0.1.492778.3.579.2.651 1961 Unknown [id number] 2.16.84 0.1.070322.3.579.2.651 1961 Unknown [id number] 2.16.84 0.1.169734.3.579.2.651 1961 Unknown [id number] 2.16.84 0.1.875174.3.579.2.651 1961 Unknown [id number] 2.16. 840.1.920294.3.579.2.594 1961 Unknown [id number] 2.16 840.1.980185.3.579.2.594 1961 Unknown [id number] 2.16. 840.1.249283.3.579.2.594 1961 Unknown [id number] 2.16. 840.1.177489.3.579.2.594 1961 Unknown [id number] 2.16. 840.1.533615.3.579.2.594 1961 Unknown [id number] 2.16 840.1.726822.3.579.2.594 1961 Unknown [id number] 2.16. 840.1.744506.3.579.2.594 1961 Unknown [id number] 2.16. 840.1.498408.3.579.2.594 1961 Unknown [id number] 2.16. 840.1.048166.3.579.2.594 Social History Date Type Detail Facility Start: 10-06-2018 End: 09-03-2022 Tobacco smoking status NHIS Never smoked tobacco [facility] Start: 10-06-2018 End: 09-03-2022 Tobacco use and exposure Smokeless tobacco non-user [facility] Start: 12-01-2020 End: 04-22-2023 Alcohol intake Current drinker of alcohol (finding) [facility] Start: 03-28-2020 History SDOH Alcohol Comment rare [facility] Start: 1960 Sex Assigned At Male [facility] Start: 09-03-2022 End: 04-22-2023 Does not use tobacco Does not use tobacco [facility] [address] Work Phone: Clinical Notes 12-01-2020 to 04-22-2023 Patricia Martinez APRN-[facility] - 04/22/2023 12:00 PM ESTPatient InstructionsAnali Stein MD - 04/22/2023 12:00 PM Harlan Stein MD - 04/22/2023 12:00 PM ESTPatient Instructions Note Date & Type Note Facility 04-22-2023 History of Presen t illness Narrative COLORECTAL SURGERY CRS Established Visit Patient: Debbie Cummins Date of Encounter: 04/22/23 Chief Complaint/Reason for today's visit: follow up after completion of DIXIE Colorectal Diagnosis: low rectal adenocarcinoma ([id number]) Interval History Since Last Appointment: Krish Cummins is a 62yo male with a history of rectal adenocarcinoma (cT3N1) which was diagnosed via colonoscopy in July 2022. He completed DIXIE at [facility]) at the end of February 2023. He completed post-treatment restaging CT scans and MRI rectum on 04/20/23. Formal radiology reads of his CT scans are still pending. MRI showed near complete response with no definite residual tumor visualized. A small area of more mixed signal slightly more superiorly was considered indeterminate as it was suboptimally visualized. He is scheduled for robotic APR on 04/30/23. He feels well, no complaints. Occasional blood with BM Physical Exam: BP 142/88 Pulse 75 Temp 98.1 F (36.7 C) (Infrared) Resp 16 Ht 1.702 m (5' 7 ) Wt 91.3 kg (201 lb 4.8 oz) SpO2 96% BMI 31.53 kg/m Smoking Status Never Wt Readings from Last 1 Encounters: 04/22/23 91.3 kg (201 lb 4.8 oz) ; 1.702 m (5' 7 ); Body mass index is 31.53 kg/m . General Appearance: awake and alert, well-appearing, in no acute distress, well-hydrated, and well-nourished Abdomen: soft, non-tender, non-distended, and no palpable masses Anorectal exam: external skin - no external lesions; resting sphincter tone: normal; sphincter squeeze increment: normal; On RHODA: mass present: No Flex-sig done, see procedure note Sail Repairer present: Yes Diagnostic tests reviewed for today's visit: CT Chest, 04/20/23: no obvious lesions by my read, Radiology read pending. CT Abdomen, 04/20/23: no obvious lesions by my read, Radiology read pending. MRI Rectum, 04/20/23: Since August 18, 2019, post treatment primary tumor assessment: Near complete response with no definite residual tumor visualized on this exam. Small area of more mixed signal slightly more superiorly is indeterminate and suboptimally visualized given the angle of imaging. Attention on follow-up is recommended Suspicious mesorectal/superior rectal lymph nodes: No Suspicious other lymph nodes: No CEA, 09/03/22: <2.0 ASSESSMENT: Low rectal cancer, cT3N1 S/P completion of DIXIE (February 2023) Complete clinical response PLAN: CEA today RTC in 3 months for CEA, RHODA, flex-sig as part of active surveillance Present case at [facility] MDT All questions were answered and the patient had no further concerns at this time. Debbie Cummins was given our contact information if she has any further questions or concerns. Spent 35 min in review of records, complex decision making. Anali Stein MD documented in this encounter [facility] 04-22-2023 Instructions Maci Cage RN - 04/22/2023 12:00 PM EST RTC in 3 months for a flex sig in clinic. Lab for CEA today. documented in this encounter [facility] 04-22-2023 Procedure note Associated Ord er(s): [place] CA SCREEN;FLEXI SIGMOIDOSCOPY Flex-sig Risks and benefits were discussed and consent was obtained. The patient placed in left lateral position on the exam table in the procedure room. RHODA performed followed by insertion of lubricated flexible sigmoidoscopy. The scope was inserted to 25 cm. The findings were as below. The scope was then withdrawn. Findings: white scar with telangectasia seen in the lower rectum to the dentate line Complications: none Specimens: none EBL: none Dr. Stein was present and personally performed the procedure or supervised the resident. Anali Stein MD [facility] 04-22-2023 Procedure note Associated Ord er(s): [place] CA SCREEN;FLEXI SIGMOIDOSCOPY Flex-sig Risks and benefits were discussed and consent was obtained. The patient placed in left lateral position on the exam table in the procedure room. RHODA performed followed by insertion of lubricated flexible sigmoidoscopy. The scope was inserted to 25 cm. The findings were as below. The scope was then withdrawn. Findings: white scar with telangectasia seen in the lower rectum to the dentate line Complications: none Specimens: none EBL: none Dr. Stein was present and personally performed the procedure or supervised the resident. Anali Stein MD documented in this encounter [facility] 09-03-2022 History of Presen t illness Narrative COLORECTAL SURGERY CRS New Patient or Consult Patient: Debbie Cummins Date of Encounter: 09/03/22 This consult was requested by himself and my final recommendations will be communicated by way of the shared medical record, digital communication, or letter. Chief Complaint/Reason for today's visit: Rectal Cancer History of Present Illness: Debbie Cummins is a 62 y.o. year old male who presents for an evaluation of a diagnosis of rectal cancer. He underwent a colonoscopy 07/24/22 and was found to have an ulcerated rectal mass. Biopsy showed adenocarcinoma. Scope was done to evaluate bleeding per anus. He had a colonoscopy in 2020 that removed polyps from cecum (6 mm) and sigmoid (20 mm) that were TVA. He had CT scans: Chest shows small indeterminate nodules ( 3 mm); no evidence of mets in the abdomen. Pelvic MRI 08/17/22: distal rectal tumor 0.5 cm above anorectal ring; posterior, about 50% circumference; 3 abnormal appearing mesorectal lymph nodes; cT2N1 He denies family history of CRC. Past Medical History: Diagnosis Date DM (diabetes mellitus) type II, controlled, with peripheral vascular disorder Hypertension Hypertension Rectal cancer 07/2022 Sleep apnea TIA (transient ischemic attack) Past Surgical History: Procedure Laterality Date COLONOSCOPY DIAGNOSTIC 07/24/2022 COLONOSCOPY DIAGNOSTIC 03/18/2020 HERNIA REPAIR REPAIR TENDON right forearm SEPTOPLASTY VASECTOMY Current Outpatient Medications Medication Sig Dispense Refill AMLODIPINE BENZOATE PO Take 5 mg by mouth daily. Dulaglutide (Trulicity) 0.75 MG/0.5ML Solution Pen-injector injection Inject 0.375 mL under the skin once a week. Insulin glargine 100 UNIT/ML vial Inject 22 Units under the skin daily every morning. Losartan 50 MG tablet Take 2 tablets by mouth daily. Multiple Vitamin (multivitamin) capsule Take 1 capsule by mouth daily. Rosuvastatin 10 MG tablet Take 1 tablet by mouth daily. Current Facility-Administered Medications Medication Dose Route Frequency Provider Last Rate Last Admin sodium phosphate w/sodium biphosphate (FLEETS) enema 1 enema 1 enema Rectal Once Anali Stein MD No Known Allergies Family History Problem Relation Age of Onset Diabetes Mother Breast Cancer Maternal Aunt Breast Cancer Paternal Aunt Lung Cancer Maternal Grandfather Cancer Cousin Pancreatic -paternal Social History Socioeconomic History Marital status: Spouse name: Not on file Number of children: Not on file Years of education: Not on file Highest education level: Not on file Occupational History Not on file Tobacco Use Smoking status: Never Smokeless tobacco: Never Substance and Sexual Activity Alcohol use: Yes Comment: occasional beer, liquor Drug use: Not Currently Comment: marijuana when young Sexual activity: Not on file Other Topics Concern Not on file Social History Narrative Not on file Social Determinants of Health Financial Resource Strain: Not on file Food Insecurity: Not on file Transportation Needs: Not on file Physical Activity: Not on file Stress: Not on file Social Connections: Not on file Intimate Partner Violence: Not on file Housing Stability: Not on file Review of Systems: History obtained from the patient GENERAL/CONSTITUTIONAL: negative for weight loss, night sweats and fevers; positive for fatigue RESPIRATORY: negative for wheezing, asthma, COPD and hemoptysis; positive for cough CARDIOVASCULAR: negative for chest pain, congestive heart failure, irregular heart beat and history of myocardial infarction; positive for hypertension GASTROINTESTINAL: negative for vomiting and incontinence; positive for nausea, diarrhea, bleeding per anus and constipation GENITOURINARY: negative for dysuria, hematuria, pneumaturia and incontinence; positive for none AGED OR DISABLED CARER: negative for not applicable; positive for not applicable MUSCULOSKELETAL: negative for joint pain and joint swelling; positive for muscle pain SKIN: negative for rash, lesions and itching; positive for none PSYCH: negative for substance abuse and dementia; positive for depression and anxiety HEMATOLOGY: negative for prolonged bleeding, easy bruising and venous thrombosis; positive for none ENDOCRINE: negative for cold or heat intolerance, polyuria and thyroid problem; positive for none NEUROLOGICAL: negative for history of headaches, seizures and tremors; positive for history of TIA or stroke ANEMIA: No All other systems are negative, other than stated above and in HPI. Physician Attestation: I have confirmed and edited as necessary, the PFSH and ROS obtained by others. Anali Stein MD Physical Exam: BP 122/74 Pulse 74 Temp 97.7 F (36.5 C) (Oral) Resp 12 Ht 1.714 m (5' 7.48 ) Comment: with shoes Wt 94.8 kg (209 lb) Comment: with shoes SpO2 96% Comment: room air BMI 32.27 kg/m Smoking Status Never Wt Readings from Last 1 Encounters: 09/03/22 94.8 kg (209 lb) ; 1.714 m (5' 7.48 ); Body mass index is 32.27 kg/m . General Appearance: awake and alert, well-appearing, in no acute distress, well-hydrated and well-nourished Psych: alert and oriented x person, place and time; affect and mood normal Skin: normal skin turgor, normal skin texture and no suspicious rashes or lesions Head: normocephalic, atraumatic and no tenderness or abnormalities Oropharynx: lips, tongue and mucosa grossly normal, teeth and gums grossly normal and oropharynx clear Heart: regular rate, regular rhythm and no murmurs, rubs, or gallops Lungs: clear to ausculation, no wheezes, no rhonchi and non-labored breating Abdomen: soft, non-tender, non-distended, no palpable masses and obese Extremities: no deformities, no edema and no cyanosis or clubbing Musculoskeletal: normal strength without obvious weakness, balance normal and no gross coordination deficits Neuro: normal memory, normal balance and normal gait Anorectal exam: external skin - no external lesions; resting sphincter tone: normal; sphincter squeeze increment: normal; On RHODA: mass present: Yes; mass felt posteriorly and on left, it is abutting the top of the sphincter complex but it does move with palpation and able to get it off the sphincter. Flex-sig done, see procedure note Sail Repairer present: Yes Diagnostic tests reviewed for today's visit: CT Chest 08/20/22 Impression Similar appearance of several nonspecific 3 mm pulmonary nodules clustered within the posterior aspect of the left upper lobe. Low lung volumes with reticular parenchymal components that may reflect an element of scarring or atelectasis. Otherwise no significant focal airspace opacity. CT AP 08/03/22 Impression 1. There are 2 round 7 mm right perirectal lymph nodes could be reactive or metastatic in nature. Focal rectal wall thickening as described above likely represents patient's known site of primary. 2. There are few indeterminate 2 mm solid noncalcified nodules in the left lung. Dedicated chest CT is strongly recommended to rule out other sites of probable metastasis. 3. Asymmetrical fatty atrophic of the pancreatic body and tail region with irregular soft tissue thickening extending from the pancreatic body to the uncinate process and ampulla which may represent residual pancreatic parenchyma given the lack of pancreatic ductal and biliary dilatation.. A pancreatic MRI and MRCP may be of further value in assessment. MRI Rectum 08/17/22 Impression Posterior semi circumferential lower rectal mass as detailed above is consistent with rectal neoplasm. MRI based staging is: T2 Based on MRI the elly stage is N1. Incidental notice of findings of osteonecrosis of the bilateral femurs. Patient is undergoing MRI of pancreas to evaluate fat thickening ASSESSMENT: 1. Low rectal cancer, cT2N1; restorative surgery would likely require transanal approach for margin, possible intersphincteric dissection 2. HTN 3. DM 4. H/o TIA 5. MARCIO 6. History of lx bilateral inguinal hernias PLAN: 1. Review MRI and present case at [facility], suspect DIXIE 2. Consults to Rad Onc and Med Onc; patient would like to have these in [place] at [facility] 3. Serum CEA All questions were answered and the patient had no further concerns at this time. Debbie Cummins was given our contact information if she has any further questions or concerns. Anali Stein MD Review of Systems: History obtained from the patient GENERAL/CONSTITUTIONAL: negative for weight loss, night sweats and fevers; positive for fatigue RESPIRATORY: negative for wheezing, asthma, COPD and hemoptysis; positive for cough CARDIOVASCULAR: negative for chest pain, congestive heart failure, irregular heart beat and history of myocardial infarction; positive for hypertension GASTROINTESTINAL: negative for vomiting and incontinence; positive for nausea, diarrhea, bleeding per anus and constipation GENITOURINARY: negative for dysuria, hematuria, pneumaturia and incontinence; positive for none AGED OR DISABLED CARER: negative for not applicable; positive for not applicable MUSCULOSKELETAL: negative for joint pain and joint swelling; positive for muscle pain SKIN: negative for rash, lesions and itching; positive for none PSYCH: negative for substance abuse and dementia; positive for depression and anxiety HEMATOLOGY: negative for prolonged bleeding, easy bruising and venous thrombosis; positive for none ENDOCRINE: negative for cold or heat intolerance, polyuria and thyroid problem; positive for none NEUROLOGICAL: negative for history of headaches, seizures and tremors; positive for history of TIA or stroke ANEMIA: No All other systems are negative, other than stated above and in HPI. documented in this encounter [facility] 09-03-2022 Instructions Jumana Albrecht RN - 09/03/2022 8:15 AM EDT Consult to Radiation Oncology Consult to Medical Oncology CEA today Case to be reviewed in Tumor Board [facility] in [facility] Procedure note Associated Ord er(s): [place] CA SCREEN;FLEXI SIGMOIDOSCOPY Procedure(s): HC SIGMOIDOSCOPY FLEXIBLE DIAGNOSTIC Pre-Procedure Diagnose(s): Malignant neoplasm of rectum Post-Procedure Diagnose(s): Malignant neoplasm of rectum Risks and benefits were discussed and consent was obtained. The patient placed in left lateral position on the exam table in the procedure room. RHODA performed followed by insertion of lubricated flexible sigmoidoscopy. The scope was inserted to 20 cm. The findings were as below. The scope was then withdrawn. Findings: 3-4 cm irregular mass with central ulceration; extending from the lower rectal valve down to near the dentate line. It is about 30% of the circumference; posteriorly and on the left Complications: none Specimens: none EBL: minimal Dr. Stein was present and personally performed the procedure, Anali Stein MD [facility] 09-03-2022 Procedure note Associated Ord er(s): [place] CA SCREEN;FLEXI SIGMOIDOSCOPY Procedure(s): HC SIGMOIDOSCOPY FLEXIBLE DIAGNOSTIC Pre-Procedure Diagnose(s): Malignant neoplasm of rectum Post-Procedure Diagnose(s): Malignant neoplasm of rectum Risks and benefits were discussed and consent was obtained. The patient placed in left lateral position on the exam table in the procedure room. RHODA performed followed by insertion of lubricated flexible sigmoidoscopy. The scope was inserted to 20 cm. The findings were as below. The scope was then withdrawn. Findings: 3-4 cm irregular mass with central ulceration; extending from the lower rectal valve down to near the dentate line. It is about 30% of the circumference; posteriorly and on the left Complications: none Specimens: none EBL: minimal Dr. Stein was present and personally performed the procedure, Anali Stein MD documented in this encounter [facility] 08-22-2022 Note DEBBIE CUMMINS was p resented at Rectal Tumor Board Conference Conference date: 22-Aug-2022 Presenting Provider(s): Dr. Jaylon Gerard Presenting location(s): [facility] Present at Conference: Med Onc, Rad Onc, Rectal Surgery, Pathology Review, Imaging Review Conference Review Type: Treatment Planning Impression 62M diagnosed with rectal cancer Colonoscopy 07/24/22 CT A/P 08/03/22 CT Chest pending Pelvic MRI 08/17/22 CEA 0.8 08/01/[address] Gerard 08/21/22. Review imaging. Imaging demonstrates per MRI from 08.17.2022 5.5cm from verge, 3.4cm lobulated intraluminal lesion Right mesorectal LN noted. No evidence of invasion to surrounding structures. cT2 N1. On CT no evidence of disease in abd/pel; Chest indeterminate pulmonary nodules - most likely post inflammatory EFRAIN, indeterminate. Incidental pancreatic finding of body and tail somewhat atrophic. Primary site: Rectum Histology: [place] GI/Esophagus/Rectal histology: Adenocarcinoma Stage: cT2 N1 National Guidelines discussed: yes Recommendations Pre-treatment Clinical Stage cT: 2 cN: 1 Recommendations Represent Patient (with findings from MR of Pancreas) Surgery (possible) Referrals Med Onc Rad Onc Other recommendations: Obtain dedicated MRI of pancreas to better evaluate. Represent with findings. Probable referral to Med Onc, Rad Onc and possible surgery. Disclaimer [facility] tumor board recommendations represent the consensus opinion of physicians present at a weekly patient care conference. The treating [facility] physician is not always present, and many of the physicians formulating the recommendation have not personally seen or examined the patient under discussion. It is understood that the treating [facility] physician considers the expertise of the Tumor Board Recommendation in formulating his/her plan for the patient. However, in many situations, based on individualized patient considerations, a different plan is determined by the treating physician to be the optimal medical management. Electronic Signatures: Carlyn Quiñones (COOR) (Signed 04-Sep-2022 12:01) Authored: Impression, Recommendations, Note, Disclaimer Last Updated: 04-Sep-2022 12:01 by Carlyn Quiñones (COOR) [facility] 07-24-2022 History of Presen t illness Narrative Debbie Cummins is a 62 year old male with a history of DM (type 2), HTN, HLD, TIA, now with newly diagnosed rectal cancer. He was referred by Dr. Barrett Monsalve.Colonoscopy, July 24, [address] Monsalve: The perianal and digital rectal examinations were normal. Pertinent negatives include normal sphincter tone and no palpable rectal lesions. The terminal ileum appeared normal. An ulcerated non-obstructing medium-sized mass was found in the distal rectum. The mass was non-circumferential. The mass measured five cm in length. In addition, its diameter measured three mm. Oozing was present. Biopsies were taken with a cold forceps for histology.Pathology: A. RECTAL MASS, BIOPSY:- ADENOCARCINOMA, MODERATELY DIFFERENTIATEDCEA level, August 01, 2022: 0.8ug/LCT AP, August 03, 2022: 1. There are 2 round 7 mm right perirectal lymph nodes could be reactive or metastatic in nature. Focal rectal wall thickening as described above likely represents patient's known site of primary.2. There are few indeterminate 2 mm solid noncalcified nodules in the left lung. Dedicated chest CT is strongly recommended to rule out other sites of probable metastasis.3. Asymmetrical fatty atrophic of the pancreatic body and tail region with irregular soft tissue thickening extending from the pancreatic body to the uncinate process and ampulla which may represent residual pancreatic parenchyma given the lack of pancreatic ductal and biliary dilatation. A pancreatic MRI and MRCP may be of further value in assessment.MRI rectum, August 17, 2022: Posterior semi circumferential lower rectal mass as detailed above is consistent with rectal neoplasm.MRI based staging is: T2 Based on MRI the elly stage is N1. Incidental notice of findings of osteonecrosis of the bilateral femurs.CT chest, August 20, 2022: Similar appearance of several nonspecific 3 mm pulmonary nodules clustered within the posterior aspect of the left upper lobe.Low lung volumes with reticular parenchymal components that may reflect an element of scarring or atelectasis. Otherwise no significant focal airspace opacity.He is on Tumor Board agenda for tomorrow. [id number] Work Phone: 07-24-2022 Note Patient Name: Vanessa Cummins Procedure Date: 07/24/2022 11:15 AM Date of : 1960 Admit Type: Outpatient Site: [facility] 1 Ethnicity: Not or Race: White Attending MD: Barrett Monsalve DO, [id number] Procedure: Colonoscopy Indications: Rectal bleeding Providers: Barrett Monsalve DO (Doctor), Suri Feliciano RN (Nurse), Ludivina Aguilar, Dictaphone Mechanic Referring: Doctor Unknown Medicines: Midazolam 5 mg IV, Meperidine 50 mg IV Complications: No immediate complications. Procedure: Pre-Anesthesia Assessment: - Prior to the procedure, a History and Physical was performed, and patient medications and allergies were reviewed. The patient is competent. The risks and benefits of the procedure and the sedation options and risks were discussed with the patient. All questions were answered and informed consent was obtained. Patient identification and proposed procedure were verified by the physician in the pre-procedure area. Mental Status Examination: alert and oriented. Airway Examination: normal oropharyngeal airway and neck mobility. Respiratory Examination: clear to auscultation. CV Examination: normal. Prophylactic Antibiotics: The patient does not require prophylactic antibiotics. Prior Anticoagulants: The patient has taken no anticoagulant or antiplatelet agents. ASA Grade Assessment: II - A patient with mild systemic disease. After reviewing the risks and benefits, the patient was deemed in satisfactory condition to undergo the procedure. The anesthesia plan was to use moderate sedation / analgesia (conscious sedation). Immediately prior to administration of medications, the patient was re-assessed for adequacy to receive sedatives. The heart rate, respiratory rate, oxygen saturations, blood pressure, adequacy of pulmonary ventilation, and response to care were monitored throughout the procedure. The physical status of the patient was re-assessed after the procedure. After I obtained informed consent, the scope was passed under direct vision. Throughout the procedure, the patient's blood pressure, pulse, and oxygen saturations were monitored continuously. The pediatric colonscope was introduced through the anus and advanced to the terminal ileum, with identification of the appendiceal orifice and IC valve. The colonoscopy was performed without difficulty. The patient tolerated the procedure well. The quality of the bowel preparation was good. The terminal ileum, ileocecal valve, appendiceal orifice, and rectum were photographed. Findings: The perianal and digital rectal examinations were normal. Pertinent negatives include normal sphincter tone and no palpable rectal lesions. The terminal ileum appeared normal. An ulcerated non-obstructing medium-sized mass was found in the distal rectum. The mass was non-circumferential. The mass measured five cm in length. In addition, its diameter measured three mm. Oozing was present. Biopsies were taken with a cold forceps for histology. Moderate Sedation: Moderate (conscious) sedation was administered by the nurse and supervised by the endoscopist. The following parameters were monitored: oxygen saturation, heart rate, blood pressure, and response to care. Total physician intraservice time was 21 minutes. Estimated Blood Loss: Estimated blood loss: none. Impression: - The examined portion of the ileum was normal. - Malignant tumor in the distal rectum. Biopsied. Recommendation: - Patient has a contact number available for emergencies. The signs and symptoms of potential delayed complications were discussed with the patient. Return to normal activities tomorrow. Written discharge instructions were provided to the patient. - (more content not included)... [facility] - 11-20-2021 Miscellaneous Notes Requested Prescriptions Pending Prescriptions Disp Refills omeprazole (PRILOSEC) 20 mg capsule [Pharmacy Med Name: OMEPRAZOLE DR 20 MG CAPSULE] 90 capsule 3 Sig: TAKE 1 CAPSULE BY MOUTH EVERY DAY Victoria Gutierres LPN November 20, 2021 8:18 AM documented in this encounter [facility] 12-05-2020 Note HNO ID: [id number] Author: Derik Mckeon Service: ? Author Type: Dictaphone Mechanic Type: Progress Notes Filed: 12/05/2020 4:02 PM Note Text: Radiology Service Progress Note DATE OF SERVICE: December 05, 2020 TIME: 4:02 PM PATIENT IDENTITY VERIFICATION COMPLETED USING TWO (2) STANDARD IDENTIFIERS: Name and Date of confirmed by patient verbally. FALL SCREENING: Has the patient had 2 falls in the last year or 1 fall with injury or currently using an Ambulatory Assistive Device (Walker, Cane, Wheelchair, Crutches, etc.)? No PATIENT GENDER DATA: Male PATIENT RELEVANT IMPLANT DATA REVIEWED: Yes ALLERGIES: Reviewed and unchanged CONTRAST ALLERGY: NO. EXAM: CT -CONTRAST INDUCED NEPHROPATHY RISK FACTORS: Not applicable CREATININE: Creatinine Date Value Ref Range Status 12/05/2020 0.84 0.73 - 1.22 mg/dL Final eGFR-All Other Races Date Value Ref Range Status 12/05/2020 >60 . Final Comment: eGFR (Estimated GFR) Units of measure: mL/min/1.73 meters squared eGFR is derived from the reexpressed MDRD Study equation using the following parameters: serum creatinine, age, gender and race. The creatinine assay has been calibrated to be traceable to IDMS. An eGFR <60 mL/min/1.73m2 for >3 months is consistent with chronic kidney disease. Refer to KDOQI guidelines for clinical interpretation. In patients with unstable renal function, e.g. those with acute kidney injury, the eGFR may not accurately reflect actual GFR. eGFR- Date Value Ref Range Status 12/05/2020 >60 Final P.O.C.T. RESULTS: POC done: Yes, See Lab Tab December 05, 2020 TREATMENT: N/A PERIPHERAL IV DATA: Ambulatory: A peripheral IV was started in the Left antecubital site with a Angio cath: 18 gauge. RADIOLOGY DEPARTMENT: CT; Exam(s) Completed: PE Study SIGNATURE: Derik Wnig PATIENT NAME: Debbie Cummins DATE: December 05, 2020 TIME: 4:02 PM [facility] 12-01-2020 Note HNO ID: [id number] Author: RT Adilson(R) Service: ? Author Type: Technologist Type: Progress Notes Filed: 12/01/2020 11:52 AM Note Text: Radiology Service Progress Note PATIENT NAME: Debbie Cummins DATE OF SERVICE: December 01, 2020 TIME: 11:43 AM PATIENT IDENTITY VERIFICATION COMPLETED USING TWO (2) IDENTIFIERS: Name and Date of confirmed by patient verbally. FALL SCREENING: Has the patient had 2 falls in the last year or 1 fall with injury or currently using an Ambulatory Assistive Device (Walker, Cane, Wheelchair, Crutches, etc.)? No PATIENT GENDER DATA: Male PATIENT RELEVANT IMPLANT DATA REVIEWED: Not Applicable RADIOLOGY DEPARTMENT: General X-ray: Exam(s) Completed: Chest X-Ray PERIPHERAL IV DATA: Not applicable SIGNED BY: RT Adilson(R) December 01, 2020 11:43 AM [facility] 12-01-2020 Note HNO ID: [id number] Author: Sakina Sampson MD Service: ? Author Type: Physician Type: Progress Notes Filed: 12/01/2020 5:02 PM Note Text: . Respiratory [place] Note Patient name: Debbie Cummins PCP: Spike Reece MD Referring Physician: self CC: SOB, post COVID HPI: Debbie Cummins 60 year old male non smoker with PMH significant for HTN, DM who presents as a self-referral for persistent shortness of breath and oxygen requirement post Covid pneumonia. Tested positive for COVID 10/11/20. Patient has a summer home in [place]. He was at a concert with his daughter and where he believes he was exposed to Covid. Several days following the concert, he developed severe fatigue, cold-like symptoms, and shortness of breath. He had severe cough productive of dark phlegm. He was seen in a local [place] where he was discovered to be severely hypoxemic. He was hospitalized for 9 days and received antibiotics, remdesivir dexamethasone. Initially required 6 L of oxygen. He did not require mechanical ventilation or high flow nasal cannula. He was discharged 3 L of oxygen, Combivent, Pulmicort and albuterol. Since discharge he has had significant persistent fatigue, dyspnea on exertion, brain fog. He has chest congestion, wheezing and was coughing up bright red blood for 1 week when he returned to [place]. No further hemoptysis. He denies any current significant chest pain. Wearing oxygen mainly with activity and at night. Self monitor SPO2 90 to 94% with oxygen. Drops into the mid 80s with activity. I do not have any of his records from [place]. DATA: PFTs today: Manera function test showed moderately severe restriction Imaging / Diagnostic Studies: DATE OF EXAM: Dec 01 2020 11:52AM ? WRX ? 5291 ?- ?XR CHEST 2V FRONTAL/LAT ?/ PROCEDURE REASON: multiple diagnoses EXAMINATION: ?CHEST RADIOGRAPH (2 VIEW FRONTAL AND LATERAL) CLINICAL HISTORY: Pneumonia due to COVID-19 virus Pneumonia due to COVID-19 virus MQ: ?[id number] EXAM DATE/TIME: ?12/01/2020 11:52 AM COMPARISON: ?No relevant prior studies available. RESULT: Lines, tubes, and devices: ?None. Lungs and pleura: ?Coarsened lung markings bilaterally. ?Airspace disease within the right middle lobe and left lower lobe. ?No significant collapse or consolidation. ?No pleural fluid or pneumothorax Cardiomediastinal silhouette: ?Normal cardiomediastinal silhouette. Bones and soft tissues: ?Unremarkable. IMPRESSION: Multifocal airspace disease bilaterally. ?No significant collapse or consolidation. I personally reviewed the images which show poor inspiratory effort and bilateral coarse lung markings with right middle lobe and left lower lobe infiltrates. PAST MEDICAL HISTORY Diagnosis Date - Adjustment disorder with depressed mood - Bipolar I disorder, most recent episode (or current) depressed, moderate Diagnosis suspect - Diabetes mellitus without mention of complication - Hypertension ALLERGIES No Known Allergies MULTIVITAMIN ORAL Take by mouth once daily. dulaglutide (TRULICITY SUBCUTANEOUS) Inject subcutaneously one time a week. amLODIPine (NORVASC) 5 mg tablet Take 5 mg by mouth once daily. glimepiride (AMARYL) 4 mg tablet Take 4 mg by mouth daily with breakfast. losartan (COZAAR) 100 mg tablet Take 100 mg by mouth once daily. rosuvastatin (CRESTOR) 10 mg tablet Take 10 mg by mouth once daily. ibuprofen 200 mg ORAL Tab Take 1-2 tablet's) every four(4) to six(6) hours as needed for pain. Aspirin 81 mg ORAL Tab Take one(1) tablet daily. pioglitazone (ACTOS) 15 mg tablet Take 15 mg by mouth once daily. 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 Pets: Dogs, outside cats Used to farm with tiles, peacocks, dogs, horses . FAMILY HISTORY Problem Relation Age of Onset - Diabetes Mother - other (MDS) Father - other (HTN) Brother - other (HTN) Brother PAST SURGICAL HISTORY Procedure Laterality Date - COLONOSCOPY - COLONOSCOPY GEN ANES 03/28/2020 Repeat in 3 years - HERNIA REPAIR HX Bilateral - OTHER right forearm tendon/ muscle repair - VASECTOMY PMH, Social history, family history and surgical history reviewed and updated in EMR REVIEW OF SYSTEMS: CONSTITUTIONAL: No fevers, chills, nightsweats, unintended weight loss. Persistent fatigue HEENT: Denies headaches, nasal congestion/sinus symptoms, allergy problems. EYES: No diplopia or blurry vision. CARDIOVASCULAR: No chest pain, palpitations, orthopnea, PND, edema. PULM: See HPI. May have obstructive sleep apnea but never evaluated in the past. No current insomnia GI: No dysphagia/odynophagia, reflux, constipation, diarrhea : No urinary complaints, including dysuria, gross hematuria NEURO: No new balance proble (more content not included)... [facility] 12-01-2020 Note Procedure (PULMWS) DEBBIE CUMMINS ([id number]) 1960 M Date Time Provider Department 12/01/20 10:15 AM RESPIRATORY THERAPIST [facility] During your visit today, we recorded the following information about you: Pulse Respiration Weight Height 90/minute 16/minute 88.4 kg 1.683 m Referring Provider: SELF [200] Allergies As of Date: 12/01/2020 (No Known Allergies) Date Reviewed: 12/01/2020 Reviewed by: Zac Thomas RRT - Fully Assessed Reason for Visit: Spirometry [191] Visit Diagnosis:Dyspnea, unspecified type [R06.00] Order(s):SPIROMETRY WITH DILATOR IF OBSTRUCTED [[id number]] Order #: [id number]. #:[id number] Prescriptions as of 12/01/2020 - dulaglutide (TRULICITY SUBCUTANEOUS) Inject subcutaneously one time a week. - pioglitazone (ACTOS) 15 mg tablet Take 15 mg by mouth once daily. - amLODIPine (NORVASC) 5 mg tablet Take 5 mg by mouth once daily. - glimepiride (AMARYL) 4 mg tablet Take 4 mg by mouth daily with breakfast. - losartan (COZAAR) 100 mg tablet Take 100 mg by mouth once daily. - rosuvastatin (CRESTOR) 10 mg tablet Take 10 mg by mouth once daily. - ibuprofen 200 mg ORAL Tab Take 1-2 tablet's) every four(4) to six(6) hours as needed for pain. - Aspirin 81 mg ORAL Tab Take one(1) tablet daily. Problem List As Of Date: 12/01/2020 (None) Encounter Status:Closed by PETUSH, ZAC on 12/01/20 [facility]al [facility]- Primary Malignant neoplasm of rectum [facility] Hemorrhage of anus and rectum Hemorrhage of rectum and anus Malignant neoplasm of rectum (CMS/HCC) Malignant neoplasm of rectum Vasectomy status Sleep apnea, unspecified Personal history of transient ischemic attack (TIA), and cerebral infarction without residual deficits Type 2 diabetes mellitus without complications (CMS/HCC) Essential (primary) hypertension Unspecified essential hypertension Pure hypercholesterolemia, unspecified documented in this encounter [facility] Work Phone: Evaluation note* Diagnosis Rectal cancer- Primary Malignant neoplasm of rectum [facility] Diagnosis Malignant neoplasm of rectum- Primary [facility] Consultation (Routine) - New Request Specialty Diagnoses / Procedures Referred By Everton buck Referred To Contact Multispecialty Diagnoses Rectal cancer Anali Stein MD [address] [place] [address] Referral ID Status Reason Start Date Expiration Date V isits Requested Visits Authorized [id number] New Request 09/03/2022 09/28/2023 1 1 * Consultation (Urgent) - New Request Specialty Diagnoses / Procedures Referred By Everton buck Referred To Contact Oncology Diagnoses Rectal cancer Anali Stein MD [address] [place] [address] Referral ID Status Reason Start Date Expiration Date V isits Requested Visits Authorized [id number] New Request 09/03/2022 09/28/2023 1 1 * Consultation (Urgent) - New Request Specialty Diagnoses / Procedures Referred By Everton buck Referred To Contact Radiation Oncology Diagnoses Rectal cancer Anali Stein MD [address] [place] [address] Referral ID Status Reason Start Date Expiration Date V isits Requested Visits Authorized [id number] New Request 09/03/2022 09/28/2023 [facility] Consultation (Routine) - New Request Specialty Diagnoses / Procedures Referred By Everton buck Referred To Contact Multispecialty Diagnoses Rectal cancer Anali Stein MD [address] [place] [address] Referral ID Status Reason Start Date Expiration Date V isits Requested Visits Authorized [id number] New Request 04/22/2023 05/16/2024 1 1 [facility] Summary Purpose Family History No Family History Records FoundUnknown Family Member Name Dates Details Family history of diabetes m ellitus: Mother, Maternal Grandmother(V18.0, Z83.3) Status:Active Family history of bleeding d isorder: Paternal Grandmother(V18.3, Z83.2) Status:Active Family history of asthma: Br other(V17.5, Z82.5) Status:Active Unknown Family Member Name Dates Details Family history of diabetes m ellitus: Mother, Maternal Grandmother(V18.0, Z83.3) Status:Active Family history of bleeding d isorder: Paternal Grandmother(V18.3, Z83.2) Status:Active Family history of asthma: Br other(V17.5, Z82.5) Status:Active Unknown Family Member Name Dates Details Family history of diabetes m ellitus: Mother, Maternal Grandmother(V18.0, Z83.3) Status:Active Family history of bleeding d isorder: Paternal Grandmother(V18.3, Z83.2) Status:Active Family history of asthma: Br other(V17.5, Z82.5) Status:Active Unknown Family Member Name Dates Details Family history of diabetes m ellitus: Mother, Maternal Grandmother(V18.0, Z83.3) Status:Active Family history of bleeding d isorder: Paternal Grandmother(V18.3, Z83.2) Status:Active Family history of asthma: Br other(V17.5, Z82.5) Status:Active Unknown Family Member Name Dates Details Family history of diabetes m ellitus: Mother, Maternal Grandmother(V18.0, Z83.3) Status:Active Family history of bleeding d isorder: Paternal Grandmother(V18.3, Z83.2) Status:Active Family history of asthma: Br other(V17.5, Z82.5) Status:Active Family history of malignant neoplasm of breast: Maternal Aunt, Paternal Aunt(V16.3, Z80.3) Status:Active Family history of pancreatic cancer: Other(V16.0, Z80.0) Status:Active Hematologic malignancy: Fath er Status:Active Unknown Family Member Name Dates Details Family history of diabetes m ellitus: Mother, Maternal Grandmother(V18.0, Z83.3) Status:Active Family history of bleeding d isorder: Paternal Grandmother(V18.3, Z83.2) Status:Active Family history of asthma: Br other(V17.5, Z82.5) Status:Active Family history of malignant neoplasm of breast: Maternal Aunt, Paternal Aunt(V16.3, Z80.3) Status:Active Family history of pancreatic cancer: Other(V16.0, Z80.0) Status:Active Hematologic malignancy: Fath er Status:Active Unknown Family Member Name Dates Details Family history of diabetes m ellitus: Mother, Maternal Grandmother(V18.0, Z83.3) Status:Active Family history of bleeding d isorder: Paternal Grandmother(V18.3, Z83.2) Status:Active Family history of asthma: Br other(V17.5, Z82.5) Status:Active Family history of malignant neoplasm of breast: Maternal Aunt, Paternal Aunt(V16.3, Z80.3) Status:Active Family history of pancreatic cancer: Other(V16.0, Z80.0) Status:Active Hematologic malignancy: Fath er Status:Active Unknown Family Member Name Dates Details Family history of diabetes m ellitus: Mother, Maternal Grandmother(V18.0, Z83.3) Status:Active Family history of bleeding d isorder: Paternal Grandmother(V18.3, Z83.2) Status:Active Family history of asthma: Br other(V17.5, Z82.5) Status:Active Family history of malignant neoplasm of breast: Maternal Aunt, Paternal Aunt(V16.3, Z80.3) Status:Active Family history of pancreatic cancer: Other(V16.0, Z80.0) Status:Active Hematologic malignancy: Fath er Status:Active Advance Directives No Advanced Directives Records FoundNo Advanced Directives Records FoundNo Advanced Directives Records FoundNo Advanced Directives Records FoundNo Advanced Directives Records FoundNo Advanced Directives Records FoundNo Advanced Directives Records FoundNo Advanced Directives Records FoundNo Advanced Directives Records Found Chief Complaint NPV in office referred by Dr. Shannon Keller at [facility] for BRBPR x 11 weeks and bloating with gassiness, stool is more mucous than normal and always has the feeling of needing to have a BM.. Last colonoscopy was 2020 with tubular adenoma. No known family hx colon/ rectal cancer. Nephew with Crohn's Disease.NPV in office referred by Dr. Shannon Keller at [facility] for BRBPR x 11 weeks and bloating with gassiness, stool is more mucous than normal and always has the feeling of needing to have a BM.. Last colonoscopy was 2020 with tubular adenoma. No known family hx colon/ rectal cancer. Nephew with Crohn's Disease.NPV Additional Source Comments (unrecognized sect ion and content) No Status Records FoundNo Status Records FoundNo Status Records FoundNo Status Records FoundNo Status Records FoundNo Status Records FoundNo Status Records FoundNo Status Records FoundNo Status Records Found INFORMATION SOURCE (unrecogn ized section and content) DATE CREATED AUTHOR AUTHOR'S ORGANIZ ATION 12/14/2020 [facility] DATE CREATED AUTHOR AUTHOR'S ORGANIZ ATION 05/06/2021 [facility] DATE CREATED AUTHOR AUTHOR'S ORGANIZ ATION 09/29/2021 [facility] DATE CREATED AUTHOR AUTHOR'S ORGANIZ ATION 07/15/2022 [facility] DATE CREATED AUTHOR AUTHOR'S ORGANIZ ATION 09/08/2022 [facility] DATE CREATED AUTHOR AUTHOR'S ORGANIZ ATION 09/13/2022 [facility] DATE CREATED AUTHOR AUTHOR'S ORGANIZ ATION 10/18/2022 Miah Fernandez [facility] DATE CREATED AUTHOR AUTHOR'S ORGANIZ ATION 04/26/2023 [facility] Source Comments (unrecognize d section and content) In the event this informatio n is protected by the Federal Confidentiality of Alcohol and Drug Abuse Patient Records regulations: The Federal rules restrict any use of the information to criminally investigate or prosecute any alcohol or drug abuse patient.[facility] the event this information is protected by the Federal Confidentiality of Alcohol and Drug Abuse Patient Records regulations: The Federal rules restrict any use of the information to criminally investigate or prosecute any alcohol or drug abuse patient.[facility] Reason for Visit (unrecogniz ed section and content) Reason Comments New Patient 2nd Opinion-Rectal C ancer Reason Comments Other Hemorrhage of anus a nd rectum Specialty Diagnoses / Procedures Referred By Contac t Referred To Contact Diagnoses Malignant neoplasm of rectum Procedures MRI RECTUM WITHOUT AND WITH CONTRAST W[place] MRI, PELVIS, COMBO Patricia Martinez, BURRING MACHINE OPERATOR-COSMETICS PRESSER [address] [place] [address] Referral ID Status Reason Start Date Expiration Date Visits Re quested Visits Authorized [id number] Closed 02/25/2023 03/21/2024 1 1 Specialty Diagnoses / Procedures Referred By Contac t Referred To Contact Diagnoses Malignant neoplasm of rectum Procedures CT CHEST WITH CONTRAST CHG DIAGNOSTIC COMPUTED TOMOGRAPHY THORAX W/CONTRAST Patricia Martinez Wallace, BURRING MACHINE OPERATOR-COSMETICS PRESSER [address] [place] [address] Referral ID Status Reason Start Date Expiration Date Visits Re quested Visits Authorized [id number] Closed 02/25/2023 03/21/2024 1 1 Specialty Diagnoses / Procedures Referred By Contac t Referred To Contact Diagnoses Malignant neoplasm of rectum Procedures CT ABDOMEN WITH CONTRAST WY CT SCAN OF ABDOMEN CONTRAST Rosaline Patricia A, BURRING MACHINE OPERATOR-COSMETICS PRESSER [address] [place] [address] Referral ID Status Reason Start Date Expiration Date Visits Re quested Visits Authorized [id number] Closed 02/25/2023 03/21/2024 1 1 Reason Comments Follow-up Rectal cancer Reason Comments Labs Only Care Teams (unrecognized sec tion and content) Telephone Order Clerk Room Service Relationship Specialty Start Date End Date Shannon Keller MD [address] [place] [address] PCP - General Internal Medicine 05/09/22 Telephone Order Clerk Room Service Relationship Specialty Start Date End Date Shannon Keller MD [address] [facility] [address] [place] [address] PCP - General Family Medicine 09/03/22 Telephone Order Clerk Room Service Relationship Specialty Start Date End Date Shannon Keller MD [address] [facility] [address] [place] [address] PCP - General Family Medicine 09/03/22 Telephone Order Clerk Room Service Relationship Specialty Start Date End Date Shannon Keller MD [address] [facility] [address] [place] [phone] PCP - General Family Medicine 09/03/22 Telephone Order Clerk Room Service Relationship Specialty Start Date End Date Shannon Keller MD [address] [place] [address] PCP - General Family Medicine 09/03/22 Telephone Order Clerk Room Service Relationship Specialty Start Date End Date Shannon Keller MD [address] [place] [phone] PCP - General [facility] Medicine 09/03/22 Telephone Order Clerk Room Service Relationship Specialty Start Date End Date Shannon Keller MD [address] [place] [address] PCP - General [facility] Medicine 09/03/22 FOR RECORDS PERTAINING TO PATIENTS WHO ARE OR HAVE BEEN ENROLLED IN A CHEMICAL DEPENDENCY/SUBSTANCEABUSE PROGRAM, SOME INFORMATION MAY BE OMITTED. This clinical summary was aggregated from multiple sources. Caution should be exercised in using it in the provision of clinical care. This summary normalizes information from multiple sources, and as a consequence, information in this document may materially change the coding, format and clinical context of patient data. In addition, data may be omitted in some cases. CLINICAL DECISIONS SHOULD BE BASED ON THE PRIMARY CLINICAL RECORDS. [facility] [employer] [facility]. provides no warranty or guarantee of the accuracy or completeness of information in this document.
--- NOTE | 2023-04-28 21:58 | CT_ITS ---
INDICATION: abdominal pain, diarrhea EXAMINATION: CT ABDOMEN AND PELVIS WITH CONTRAST - CT Abdomen And Pelvis W/ Contrast Injection TECHNIQUE: Helically acquired images were obtained of the abdomen and pelvis following IV contrast. A radiation dose optimization technique was used for this scan. IV Contrast dosage and agent: 100 mL Isovue-370 Oral contrast: None. COMPARISON: None. FINDINGS: LOWER CHEST: Lung bases are clear. No cardiomegaly or pericardial effusion. LIVER: Mild hepatic steatosis. No focal mass. GALLBLADDER AND BILIARY TREE: No calcified gallstones. No gallbladder distension or wall edema. No intra- or extrahepatic biliary ductal dilation. PANCREAS: Mostly fatty replaced. SPLEEN: Normal size without focal cystic or solid mass. ADRENAL GLANDS: No nodules. KIDNEYS AND URETERS: Normal renal size and position. No hydronephrosis. PERITONEUM: No ascites or free air. No other fluid collection. BOWEL: No acute gastric finding. No small bowel distention or focal wall thickening. LYMPH NODES: No enlarged mesenteric or retroperitoneal lymph nodes. VESSELS: Aortic atherosclerosis without ectasia.. URINARY BLADDER: Circumferential bladder wall thickening with surrounding edema. REPRODUCTIVE ORGANS: No pelvic masses. ABDOMINAL WALL: Anterior pelvic wall surgical change. No discrete abdominal or pelvic wall hernia. BONES: No lytic or blastic abnormality. CT/Abdomen/Pelvis W IV Cont ONLY IMPRESSION: Circumferential bladder wall inflammation concerning for cystitis. Mild hepatic steatosis. Electronically Signed: Pratik Gregory MD at 22:54 EST ,
[2023-04-28 22:00] VITALS: BP 134/88; O2SAT 96
[2023-04-28 23:00] VITALS: BP 132/79; O2SAT 95
[2023-04-28 23:54] LABS: Bacteria 0 SEEN /hpf (None Seen); Mucous, Urine 0 SEEN /hpf (<or=2+); Red Blood Cells-Urine 0 SEEN /hpf (0-5); Squamous Epithelial Cells - UA 0 SEEN /hpf (0-5); White Blood Cells 0 SEEN /hpf (0-5)
[2023-04-29] VITALS: BP 119/74; O2SAT 90
[2023-04-29 00:05] LABS: Color, Urine Yellow (Yellow); Glucose, Dipstick 50 mg/dl (Normal); Ketone-Dipstick Negative (Negative); Leukocyte Esterase-Dipstick Negative /ul (Negative); Nitrite-Dipstick Negative (Negative); Occult Blood-Urine Negative /ul (Negative); Protein-Dipstick Negative (Negative); Specific Gravity, Urine 1.015 (1.002-1.030); Urine Bilirubin Dipstick Negative (Negative); Urine Clarity Clear (Clear); Urine Urobilinogen Normal (Normal); Urine pH 6.5 (5.0 - 8.0)
[2023-04-29 00:40] VITALS: BP 119/74; PULSE 88; RESP 18; TEMP 36.6; O2SAT 97
== END 2023-04-29 01:16 | disposition home or self-care (01) ==
PROVIDERS: Physician Assistant; Emergency Provider Emergency Medicine; PCP Student in an Organized Health Care Education/Training Program; Visit Provider Emergency Medicine
DX: R19.7 Diarrhea, unspecified (principal); E11.9 Type 2 diabetes mellitus without complications; E78.00 Pure hypercholesterolemia, unspecified; R11.2 Nausea with vomiting, unspecified; I10 Essential (primary) hypertension; K21.9 Gastro-esophageal reflux disease without esophagitis
CPT/HCPCS: 36591; 74177; 80053; 81001; 85025; 87493; 87506; 99284; J7030; Q9967; A4216; J2405